=== PATIENT | female | born 1985 | race African-American/Black ===

== ENCOUNTER 2017-08-20 15:59 | Emergency (ER) | payer OTHER ==
[~2017-08-20] VITALS: Ht 167.6 cm; Wt 65.8 kg
[2017-08-20 16:06] VITALS: BP 103/87
== END 2017-08-20 16:46 | disposition home or self-care (01) ==
LOC: ER 16:06
DX: S40.861A Insect bite (nonvenomous) of right upper arm, initial encounter (principal); L03.113 Cellulitis of right upper limb; J45.909 Unspecified asthma, uncomplicated; W57.XXXA Bitten or stung by nonvenomous insect and other nonvenomous arthropods, initial encounter; Y93.89 Activity, other specified; Y92.89 Other specified places as the place of occurrence of the external cause; Y99.8 Other external cause status
CPT/HCPCS: A4606; Z7610